=== PATIENT | female | born 1945 | race African-American/Black ===

== ENCOUNTER 2017-07-22 10:54 | Outpatient (CLI) | payer MEDICARE, MEDICAID | END 2017-07-22 10:55 | disposition home or self-care (01) | LOC: BICMAMMO 10:54 | PROVIDERS: ATTEND Family Medicine | DX: Z12.31 Encounter for screening mammogram for malignant neoplasm of breast (principal); N63.10 Unspecified lump in the right breast, unspecified quadrant | CPT/HCPCS: 77063; 77067 ==

== ENCOUNTER 2017-08-20 08:21 | Outpatient (CLI) | payer MEDICARE, MEDICAID ==
--- NOTE | 2017-08-20 10:42 | ULT ---
HEPATIC ULTRASOUND WITH DUPLEX VALUATION: INDICATION: History of cirrhosis. TECHNIQUE: Zacarias scale, color Doppler, vascular duplex with spectral analysis was performed of the right upper qu adrant in addition to the hepatic vasculature. Comparisons are made with MRI of the abdomen dated . FINDINGS: The liver demonstrates coarse echotexture and nodular contour consistent with patient's history of ci rrhosis. The liver measured 15 cm in it greatest longitudinal dimension. There is appropriate hepatopetal flow seen within the hepatic vasculature. Appropriate flow is seen within the hepatic veins. Appropriate flow is seen within the splenic artery. The gallbladder is surgically absent. The common bile duct measured 5 mm. The visualized aspects of the pancreas and aorta were within normal limits. Visualized aspects of th e IVC were within normal limits. The right kidney measured 8.7 cm. No focal renal hydronephrosis is evident. The spleen measures 11. 2 cm in length. IMPRESSION: 1. Findings of cirrhosis. 2. Appropriate hepatopetal flow demonstrated. 3. Cholecystectomy. POS: [facility]
== END 2017-08-20 08:22 | disposition home or self-care (01) ==
LOC: ULT 08:21
PROVIDERS: ATTEND Internal Medicine Gastroenterology
DX: K70.30 Alcoholic cirrhosis of liver without ascites (principal); Z90.49 Acquired absence of other specified parts of digestive tract
CPT/HCPCS: 76705

== ENCOUNTER 2018-02-02 07:58 | Outpatient (CLI) | payer MEDICARE, MEDICAID ==
--- NOTE | 2018-02-02 11:46 | ULT ---
HEPATIC ULTRASOUND WITH DOPPLER EVALUATION: Date: 02/02/18 HISTORY: Cirrhosis. FINDINGS: Real-time imaging of the liver shows a heterogeneous appearing liver. No focal discrete masses. Liver measures approximately 14.0 cm in length. Gallbladder has been removed. The common duct is 4.0 mm. DOPPLER EVALUATION WITH SPECTRAL ANALYSIS: Normal flow patterns are shown within the liver. The spleen is 11.5 cm in size. Right kidney is normal in size and not obstructed. Pancreas is partially obscured. IMPRESSION: 1. Heterogeneous liver echotexture without evidence of any focal discrete mass. 2. Postop cholecystectomy change. POS: [facility]
== END 2018-02-02 07:59 | disposition home or self-care (01) ==
LOC: ULT 07:58
PROVIDERS: ATTEND Internal Medicine Gastroenterology
DX: K70.30 Alcoholic cirrhosis of liver without ascites (principal); K76.89 Other specified diseases of liver; Z90.49 Acquired absence of other specified parts of digestive tract
CPT/HCPCS: 76705

== ENCOUNTER 2018-08-04 11:54 | Outpatient (CLI) | payer MEDICARE, MEDICAID ==
--- NOTE | 2018-08-08 13:25 | MMO ---
Bilateral MAMMO Bilat Screen [facility]. CLINICAL HISTORY: Patient is 73 years old and is seen for screening. The patient has no family history of breast cancer. The patient has no personal history of cancer. VIEWS: The views performed were: bilateral craniocaudal with tomosynthesis and bilateral mediolateral oblique with tomosynthesis. FILMS COMPARED: The present examination has been compared to prior imaging studies performed at [facility] on 06/27/2009, 06/30/2010, 03/27/2011, 04/28/2013, 05/01/2014, 06/21/2015, 06/23/2016 and 07/22/2017. MAMMOGRAM FINDINGS: The breasts are heterogeneously dense, which could obscure a lesion on mammography. Finding 1: There are stable benign appearing calcifications seen in both breasts. There are also vascular calcifications. Finding 2: There is a stable mass seen in the upper-outer region of the right breast. There are no suspicious masses, suspicious calcifications, or new areas of architectural distortion. IMPRESSION: THERE IS NO MAMMOGRAPHIC EVIDENCE OF MALIGNANCY. A ROUTINE FOLLOW-UP MAMMOGRAM IN 1 YEAR IS RECOMMENDED. THE RESULTS OF THIS EXAM WERE SENT TO THE PATIENT. ACR BI-RADS Category 2 - Benign finding MAMMOGRAPHY NOTE: 1. A negative mammogram report should not delay a biopsy if a dominant of clinically suspicious mass is present. 2. Approximately 10% to 15% of breast cancers are not detected by mammography. 3. Adenosis and dense breasts may obscure an underlying neoplasm.
== END 2018-08-04 11:55 | disposition home or self-care (01) ==
LOC: BICMAMMO 11:54
PROVIDERS: ATTEND Family Medicine
DX: Z12.31 Encounter for screening mammogram for malignant neoplasm of breast (principal)
CPT/HCPCS: 77063; 77067

== ENCOUNTER 2018-09-09 09:48 | Emergency (ER) | payer MEDICARE, MEDICAID ==
[2018-09-09 10:53] LABS: #Basophils 0.1 thou/uL (0.0-0.2); #Eosinphils 0.1 thou/uL (0.0-0.7); #Lymphocytes 1.9 thou/uL (1.20-3.40); #Monocytes 0.5 thou/uL (0.11-0.59); %Basophils 1.6 % (0.0-1.0); %Eosinophils 2.2 % (0.0-10.0); %Lymphocytes 42.3 % (21.0-51.0); %Monocytes 10.1 % (0.0-10.0); %Neutrophils 43.7 % (42.0-75.0); Hemoglobin 12.1 g/dL (12.0-16.0); Mean Corpuscular HGB CONC 32.5 g/dL (32.0-36.0); Mean Corpuscular Hemoglobin 27.2 pg (27.0-31.0); Mean Corpuscular Volume 83.8 fL (78.0-98.0); Mean Platelet Volume 9.3 fL (7.4-10.4); Platelet Count 153 thou/uL (130-400); RBC Distribution Width 12.8 % (11.5-14.5); Red Blood Cell (RBC) Count 4.44 mill/uL (4.20-5.40); White Blood Cell (WBC) Count 4.5 thou/uL (4.8-10.8)
[2018-09-09 11:15] LABS: ALT (SGPT) 8 U/L (8-55); AST (SGOT) 17 U/L (5-34); Alkaline Phosphatase 133 U/L (40-150); Anion Gap 12 mmol/L (10-20); BUN (Urea Nitrogen) 9 mg/dL (9.8-20.1); Bilirubin, Total 0.5 mg/dL (0.2-1.2); Calc. Creatinine Clearance 0 mL/min (70-130); Calcium 9.8 mg/dL (7.8-10.44); Carbon Dioxide 26 mmol/L (23-31); Chloride 106 mmol/L (98-107); Estimated GFR-MDRD 85; Globulin 3.2 g/dL (2.4-3.5); Glucose 85 mg/dL (83-110); Potassium 4.4 mmol/L (3.5-5.1); Protein, Total 7.2 g/dL (6.0-8.3); Sodium 140 mmol/L (136-145)
== END 2018-09-09 11:40 | disposition home or self-care (01) ==
LOC: ERS 09:48
DX: M79.89 Other specified soft tissue disorders (principal); E11.9 Type 2 diabetes mellitus without complications; K74.60 Unspecified cirrhosis of liver; Z79.84 Long term (current) use of oral hypoglycemic drugs
CPT/HCPCS: 36415; 80053; 83880; 85025; 99283

== ENCOUNTER 2018-09-12 08:14 | Outpatient (CLI) | payer MEDICARE, MEDICAID ==
--- NOTE | 2018-09-12 11:03 | ULT ---
HEPATIC ULTRASOUND: Date: 09/12/18 HISTORY: Cirrhosis. FINDINGS: Real-time imaging of the liver shows gallbladder to have been removed. The common duct is in the 5 mm range. Liver has a coarse echotexture and a somewhat nodular surface, suggestive of cirrhotic change . DOPPLER EVALUATION WITH SPECTRAL ANALYSIS: Normal flow pattern is demonstrated within the liver. Spleen appears slightly enlarged. It measures 1 2.4 cm in length. IMPRESSION: 1. Heterogeneous echotexture to the liver without any focal discrete mass. 2. Postop cholecystectomy change. 3. Borderline spleen size. POS: [facility]
== END 2018-09-12 08:15 | disposition home or self-care (01) ==
LOC: BICULT 08:14
PROVIDERS: ATTEND Internal Medicine Gastroenterology
DX: K74.60 Unspecified cirrhosis of liver (principal); Z98.890 Other specified postprocedural states
CPT/HCPCS: 76705

== ENCOUNTER 2019-04-17 09:58 | Emergency (ER) | payer MEDICARE, MEDICAID | END 2019-04-17 11:33 | disposition home or self-care (01) | LOC: ERS 09:58 | DX: B37.0 Candidal stomatitis (principal); E11.9 Type 2 diabetes mellitus without complications; Z79.84 Long term (current) use of oral hypoglycemic drugs | CPT/HCPCS: 36416; 99283 ==

== ENCOUNTER 2019-04-21 08:08 | Outpatient (CLI) | payer MEDICARE, MEDICAID ==
--- NOTE | 2019-04-21 10:09 | ULT ---
HEPATIC ULTRASOUND WITH VASCULAR DUPLEX AND COLOR AND SPECTRAL DOPPLER IMAGING: HISTORY: Cirrhosis. COMPARISON: 09/12/2018 FINDINGS: Course liver echogenicity with some marginal nodularity which is consistent with cirrhosis. Status po st cholecystectomy. Common bile duct 0.3 cm. Somewhat inhomogeneous echogenicity within the spleen. N o evidence for ascites. Hepatic venous and portal venous flow is all antegrade. IMPRESSION: Evidence for cirrhosis. Antegrade hepatic and portal venous flow. No other significant acute process. POS: [facility]
== END 2019-04-21 08:09 | disposition home or self-care (01) ==
LOC: BICULT 08:08
PROVIDERS: ATTEND Internal Medicine Gastroenterology
DX: K74.60 Unspecified cirrhosis of liver (principal)
CPT/HCPCS: 76705

== ENCOUNTER 2019-09-08 09:37 | Outpatient (CLI) | payer MEDICARE, MEDICAID ==
--- NOTE | 2019-09-08 10:42 | MMO ---
Bilateral MAMMO Bilat Screen [facility]. CLINICAL HISTORY: Patient is 74 years old and is seen for screening. The patient has no family history of breast cancer. The patient has no personal history of cancer. VIEWS: The views performed were: bilateral craniocaudal with tomosynthesis; bilateral mediolateral oblique with tomosynthesis; and left mediolateral oblique. FILMS COMPARED: The present examination has been compared to prior imaging studies performed at [facility] on 06/23/2016, 07/22/2017 and 08/04/2018. This study has been interpreted with the assistance of computer-aided detection. MAMMOGRAM FINDINGS: The breasts are heterogeneously dense, which could obscure a lesion on mammography. Finding 1: There are stable benign appearing calcifications seen in both breasts. Finding 2: There are stable benign appearing densities seen in both breasts. Finding 3: There is a stable lobular mass with circumscribed margins seen in the upper region of the right breast. There are no suspicious masses, suspicious calcifications, or new areas of architectural distortion. IMPRESSION: THERE IS NO MAMMOGRAPHIC EVIDENCE OF MALIGNANCY. A ROUTINE FOLLOW-UP MAMMOGRAM IN 1 YEAR IS RECOMMENDED. THE RESULTS OF THIS EXAM WERE SENT TO THE PATIENT. ACR BI-RADS Category 2 - Benign finding MAMMOGRAPHY NOTE: 1. A negative mammogram report should not delay a biopsy if a dominant of clinically suspicious mass is present. 2. Approximately 10% to 15% of breast cancers are not detected by mammography. 3. Adenosis and dense breasts may obscure an underlying neoplasm. Reported by: TERRI CASE MD Electonically Signed: [id number]
--- NOTE | 2019-09-08 12:13 | BD ---
BONE DENSITOMETRY USING DEXA: HISTORY: Postop screening for osteoporosis. FINDINGS: Lumbar Spine: BMD (g/cm2) L1 0.879 T-Score: -1.0 Z-Score: 0.5 L2 0.941 T-Score: -0.8 Z-Score: 0.9 L3 1.031 T-Score: -0.5 Z-Score: 1.2 L4 0.966 T-Score: -0.9 Z-Score: 0.9 L1-L4 0.957 T-Score: -0.8 Z-Score: 0.8 Femoral Neck: 0.727 T-Score: -1.1 Z-Score: 0.0 Total Femur: 0.984 T-Score: 0.3 Z-Score: 1.0 The 10-year fracture risk for a major osteoporotic fracture is 4.4% and for a hip fracture is 0.7%. Impression: Osteopenia. POS: [facility]
== END 2019-09-08 09:38 | disposition home or self-care (01) ==
LOC: BICMAMMO 09:37
PROVIDERS: ATTEND Obstetrics & Gynecology
DX: Z12.31 Encounter for screening mammogram for malignant neoplasm of breast (principal); Z13.820 Encounter for screening for osteoporosis; M85.859 Other specified disorders of bone density and structure, unspecified thigh
CPT/HCPCS: 77063; 77067; 77080

== ENCOUNTER 2019-11-07 08:48 | Outpatient (CLI) | payer MEDICARE, MEDICAID ==
--- NOTE | 2019-11-07 12:26 | ULT ---
HEPATIC ULTRASOUND WITH VASCULAR DUPLEX INCLUDING COLOR AND SPECTRAL DOPPLER IMAGING: HISTORY: Cirrhosis. COMPARISON: 04/21/2019. FINDINGS: Liver contour nodularity with heterogeneous echogenicity compatible with history of cirrhosis. Statu s post cholecystectomy. No evidence for common duct dilatation. Visualized pancreas and spleen are unremarkable. Hepatic and portal venous flow is antegrade. IMPRESSION: Heterogeneous liver echogenicity with some associated marginal nodularity, evidence for cirrhosis. Antegrade hepatic and portal venous flow. POS: [facility]
== END 2019-11-07 08:49 | disposition home or self-care (01) ==
LOC: BICULT 08:48
PROVIDERS: ATTEND Internal Medicine Gastroenterology
DX: K74.60 Unspecified cirrhosis of liver (principal); D50.9 Iron deficiency anemia, unspecified; R93.2 Abnormal findings on diagnostic imaging of liver and biliary tract
CPT/HCPCS: 76705

== ENCOUNTER 2020-05-15 08:56 | Outpatient (CLI) | payer MEDICARE, MEDICAID ==
--- NOTE | 2020-05-15 10:47 | ULT ---
Hepatic Doppler ultrasound: 05/15/2020 COMPARISON: 11/07/2019 HISTORY: Cirrhosis TECHNIQUE: Multiplanar grayscale sonographic imaging of the abdomen provided. The hepatic and splenic vasculature is assessed with Doppler interrogation including color flow and spectral analysis FINDINGS: The liver is heterogeneous and demonstrates an irregular peripheral contour consistent with the provided history of cirrhosis. Limited assessment of the pancreas appears grossly unremarkable. The aorta and IVC appear within normal limits. No discrete focal liver lesion is apparent on this exam. The left hepatic vein, left portal vein, mid dle hepatic vein, main portal vein, right portal vein, and right hepatic vein are patent. Right hepatic artery patent as well. Common bile duct measures 4 mm, within normal limits. Gallbladder surg ically absent. Spleen is normal in size measuring up to 11.5 cm. Splenic artery and vein are patent. Vascular struct ures demonstrate normal flow direction and waveforms. IMPRESSION: Cirrhotic configuration of the liver. Hepatic and splenic vasculature patent.
== END 2020-05-15 08:57 | disposition home or self-care (01) ==
LOC: BICULT 08:56
PROVIDERS: ATTEND Internal Medicine Gastroenterology
DX: K74.60 Unspecified cirrhosis of liver (principal)
CPT/HCPCS: 76705

== ENCOUNTER 2022-05-27 07:39 | Outpatient (CLI) | payer OTHER, MEDICAID | END 2022-05-27 07:40 | disposition home or self-care (01) | LOC: BICULT 07:39 | PROVIDERS: ATTEND Internal Medicine Gastroenterology | DX: K74.60 Unspecified cirrhosis of liver (principal) | CPT/HCPCS: 76705 ==

== ENCOUNTER 2023-01-18 12:00 | Observation (INO) | payer OTHER ==
[2023-01-18 12:59] LABS: #Monocytes 0.4 thou/uL (0.11-0.59); %Basophils 0.5 % (0.0-1.0); %Eosinophils 0.7 % (0.0-10.0); %Lymphocytes 43.1 % (21.0-51.0); %Neutrophils 45.5 % (42.0-75.0); Hematocrit 37.6 % (36.0-47.0); Hemoglobin 13.1 g/dL (12.0-16.0); Mean Corpuscular HGB CONC 34.8 g/dL (32.0-36.0); Mean Corpuscular Volume 83.4 fl (78.0-98.0); Mean Platelet Volume 10.8 fL (7.4-10.4); Platelet Count 166 10x3/uL (130-400); RBC Distribution Width 12.8 % (11.5-14.5); Red Blood Cell (RBC) Count 4.51 mill/uL (4.20-5.40); White Blood Cell (WBC) Count 4.3 10x3/uL (4.8-10.8)
[2023-01-18 13:23] LABS: ALT (SGPT) 10 U/L (8-55); AST (SGOT) 21 U/L (5-34); Albumin 4.3 g/dL (3.4-4.8); Alkaline Phosphatase 91 U/L (40-110); Anion Gap 17 mmol/L (10-20); BUN (Urea Nitrogen) 8 mg/dL (9.8-20.1); Bilirubin, Total 1.2 mg/dL (0.2-1.2); Calc. Creatinine Clearance 0 mL/min (70-130); Calcium 10.7 mg/dL (7.8-10.44); Carbon Dioxide 26 mmol/L (23-31); Chloride 99 mmol/L (98-107); Estimated GFR 70; Globulin 3.3 g/dL (2.4-3.5); Glucose 132 mg/dL (83-110); Potassium 2.8 mmol/L (3.5-5.1); Protein, Total 7.6 g/dL (5.8-8.1); Sodium 139 mmol/L (136-145)
[2023-01-18 14:28] LABS: Troponin I Less than 0.010 ng/mL (< 0.028)
[2023-01-18] MEDS ORDERED: Potassium Chloride 20 MEQ TAB ONE (15:02)
[2023-01-18 15:18] LABS: Bacteria/HPF None Seen HPF (None Seen); Bilirubin Negative (Negative); Blood, Urine Negative (Negative); CAUTI Indications for Culture Pelvic or flank pain; Clarity Clear (Clear); Glucose, Urine (Dipstick) Normal (Negative); Ketone, Urine Negative (Negative); Leukocyte Negative Leu/uL (Negative); Nitrite Negative (Negative); Protein, Urine (Dipstick) Negative (Neg-Trace); RBC/HPF 0-3 HPF (0-3); Specific Gravity, Urine 1.005 (1.002-1.036); Squamous Epithelial None Seen HPF (0-3); Urobilinogen Normal mg/dL (Less than 2); WBC/HPF 0-3 HPF (0-3)
[2023-01-18 15:21] LABS: Urine Culture Reflex No No
[2023-01-18] MEDS ORDERED: Acetaminophen 325 MG TAB PO PRN (18:16)
[2023-01-18] MEDS ORDERED: Ondansetron ODT 4 MG TAB PO PRN (18:16)
[2023-01-18] MEDS ORDERED: Ondansetron PF 4 MG/2 ML Vial IVP PRN (18:16)
[2023-01-18] MEDS ORDERED: Glucagon 1 MG/ML KIT IM PRN (18:26)
[2023-01-18] MEDS ORDERED: Dextrose 50% Abboject 50 ML SYRINGE SLOW IVP PRN (18:26)
[2023-01-18] MEDS ORDERED: Insulin Regular 300 UNITS/3 ML VIAL SC PRN ×2 (18:26)
[2023-01-18] MEDS ORDERED: Dextrose 5% in Water 1,000 ML IV PRN (18:26)
[2023-01-18] MEDS ORDERED: Nitroglycerin 0.4 MG TAB (25 Tab Bottle) SL PRN (18:27)
[2023-01-18] MEDS ORDERED: NS 0.9% w/ 40 MEQ KCL 1,000 ML IV SCH (18:30)
[2023-01-18] MEDS ORDERED: Labetalol HCl 100 MG/20 ML VIAL SLOW IVP PRN (18:40)
[2023-01-18] MEDS ORDERED: Potassium Chloride 20 MEQ TAB PO SCH (18:45)
[2023-01-18] MEDS ORDERED: Electrolyte Replacement Protocol 1 EACH FS SCH (18:45)
[2023-01-18 19:03] LABS: Troponin I Less than 0.010 ng/mL (< 0.028)
[2023-01-18 19:52] VITALS: BMI 21.5
[2023-01-18] MEDS: Famotidine 20 MG TAB PO SCH (20:20)
[2023-01-18] MEDS ORDERED: Heparin 5,000 UNITS/ML VIAL SC SCH (21:00)
[2023-01-18 21:11] LABS: Troponin I Less than 0.010 ng/mL (< 0.028)
[2023-01-19 05:31] LABS: #Eosinphils 0.1 thou/uL (0.0-0.7); #Monocytes 0.5 thou/uL (0.11-0.59); #Neutrophils 1.5 thou/uL (1.40-6.50); %Basophils 0.5 % (0.0-1.0); %Eosinophils 1.4 % (0.0-10.0); %Lymphocytes 43.2 % (21.0-51.0); %Monocytes 13.2 % (0.0-10.0); %Neutrophils 41.4 % (42.0-75.0); Hematocrit 32.9 % (36.0-47.0); Hemoglobin 11.5 g/dL (12.0-16.0); Mean Corpuscular Hemoglobin 29.7 pg (27.0-31.0); Platelet Count 147 10x3/uL (130-400); RBC Distribution Width 13.1 % (11.5-14.5); Red Blood Cell (RBC) Count 3.87 mill/uL (4.20-5.40); White Blood Cell (WBC) Count 3.7 10x3/uL (4.8-10.8)
[2023-01-19 06:07] LABS: Anion Gap 11 mmol/L (10-20); BUN (Urea Nitrogen) 7 mg/dL (9.8-20.1); Calc. Creatinine Clearance 59 mL/min (70-130); Carbon Dioxide 25 mmol/L (23-31); Chloride 107 mmol/L (98-107); Estimated GFR 77; Glucose 99 mg/dL (83-110); Magnesium 1.5 mg/dL (1.6-2.6); Phosphorus 3.1 mg/dL (2.3-4.7); Potassium 3.8 mmol/L (3.5-5.1); Sodium 139 mmol/L (136-145)
[2023-01-19] MEDS ORDERED: Magnesium 2 GM/50 ML(in water) 2 GM in Premix Bag 1 BAG IVPB SCH ×2 (08:00→21:00)
[2023-01-19] MEDS: Famotidine 20 MG TAB PO SCH ×2 (08:43→20:46)
[2023-01-19 14:27] LABS: Potassium 3.6 mmol/L (3.5-5.1)
[2023-01-19 16:13] LABS: Magnesium 1.8 mg/dL (1.6-2.6)
[2023-01-20] MEDS ORDERED: Magnesium 2 GM/50 ML(in water) 2 GM in Premix Bag 1 BAG IVPB SCH (08:00)
[2023-01-20] MEDS: Famotidine 20 MG TAB PO SCH (08:29)
[2023-01-20 12:28] VITALS: BP 110/55; TEMP 98.5
== END 2023-01-20 14:50 | disposition home or self-care (01) ==
LOC: ERS 12:00 → 2SW 17:07
PROVIDERS: ADMIT Internal Medicine; ATTEND Internal Medicine
DX: R53.1 Weakness (principal); I95.1 Orthostatic hypotension; I08.1 Rheumatic disorders of both mitral and tricuspid valves; E87.6 Hypokalemia; R19.7 Diarrhea, unspecified; E11.9 Type 2 diabetes mellitus without complications; I10 Essential (primary) hypertension; E78.5 Hyperlipidemia, unspecified; Z90.49 Acquired absence of other specified parts of digestive tract; Z79.84 Long term (current) use of oral hypoglycemic drugs; Z79.899 Other long term (current) drug therapy
CPT/HCPCS: 80048; 80053; 81001; 82962 ×3; 83735 ×2; 84100; 84132; 84484 ×2; 85025 ×2; 93005; 93306; 94760; 96374; 96375; 96376 ×2; 99285; G0378 ×4; 36415; 36416; J3475; J3480

== ENCOUNTER 2024-03-20 10:05 | Outpatient (CLI) | payer OTHER | END 2024-03-20 10:06 | disposition home or self-care (01) | LOC: ULT 10:05 | PROVIDERS: ATTEND Physician Assistant Medical | DX: K74.60 Unspecified cirrhosis of liver (principal) | CPT/HCPCS: 76705 ==

== ENCOUNTER 2024-05-23 09:50 | Outpatient (CLI) | payer OTHER | END 2024-05-23 09:51 | disposition home or self-care (01) | LOC: BICMAMMO 09:50 | PROVIDERS: ATTEND Nurse Practitioner Family | DX: Z13.820 Encounter for screening for osteoporosis (principal); Z78.0 Asymptomatic menopausal state; M85.88 Other specified disorders of bone density and structure, other site | CPT/HCPCS: 77080 ==

== ENCOUNTER 2025-04-30 10:50 | Outpatient (CLI) | payer OTHER | END 2025-04-30 10:51 | disposition home or self-care (01) | LOC: ULT 10:50 | PROVIDERS: ATTEND Physician Assistant Medical | DX: K74.60 Unspecified cirrhosis of liver (principal) | CPT/HCPCS: 76705 ==